=== PATIENT | female | born 1975 | race Caucasian/White ===

== ENCOUNTER 2022-05-25 20:39 | Emergency (ER) | payer MEDICAID, SELFPAY ==
[2022-05-25 21:57] VITALS: BP 109/42; PULSE 69; RESP 16; TEMP 36.4; O2SAT 97; BMI 26.6
--- NOTE | 2022-05-26 00:05 | ED.SKABFB ---
HPI - Skin/Abscess/Foreign Bdy General Chief complaint: Skin/Abscess/Foreign Body Stated complaint: FB in nipple Time Seen by Provider: 05/25/22 23:56 Source: patient Mode of arrival: ambulatory Limitations: no limitations History of Present Illness HPI narrative: 46-year-old female presents requesting to get her piercing taken out of her left. 5 days ago patient noted that 1 of the balls on her nipple piercing bar was caught underneath her nipple. She tells me it does not hurt unless she touches it. Denies fevers, chills, discharge from nipple, numbness, tingling. 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 Related Data Previous Rx's Medication Instructions Recorded cephalexin 500 mg tablet 500 mg PO Q6H 10 days #40 tabs 05/26/22 Allergies Allergy/AdvReac Type Severity Reaction Status Date / Time No Known Allergies Allergy Unverified 04/18/20 16:05 [No Known Allergies*] Review of Systems Review of Systems: Constitutional : No Weight loss, No Fever, No Chills, No Fatigue, No Malaise ENT/Mouth : No sore throat, No Rhinorrhea Eyes: No Eye Pain, No Swelling, No Redness Cardiovascular : No Chest Pain, No SOB, No Dyspnea on Exertion, No Orthopnea, No Edema, No Palpitations Respiratory : No Cough, No Sputum, No Wheezing Gastrointestinal : No Nausea, No Vomiting, No Diarrhea, No Constipation, No abdominal Pain, No Hematochezia, No Melena Genitourinary : No Dysuria, No Urinary Frequency, No Hematuria, Musculoskeletal : No joint pain, No Myalgias, No Joint Swelling Skin : No Skin Lesions, No rash Neuro : No Weakness, No Numbness, No Dizziness, No Headache All other systems reviewed and are negative Yes all other systems are reviewed and are negative [facility] Past Medical History Attestation statement: The following information was validated with the patient. Source: old records reviewed and nursing notes reviewed Social History Social History Advance Directives: No Physical Exam Vital Signs: Vital Signs: Last Vital Signs Temp 97.6 F 05/25/22 21:57 Pulse 69 05/25/22 21:57 Resp 16 05/25/22 21:57 BP 109/42 L 05/25/22 21:57 Pulse Ox 97 05/25/22 21:57 O2 Del Method 05/25/22 21:57 BMI result Body Mass Index 26.6 vss Appearance: Alert.? Oriented X3.? No acute distress.? Head: Normocephalic, atraumatic, no step-offs or deformities Eyes: Pupils equal, round and reactive to light.? CVS: Normal heart rate and rhythm.? Pulses normal.? Respiratory: No respiratory distress.? Breath sounds normal.? Abdomen: Soft and nontender.? Skin: Skin warm and dry.? Normal skin color.? Normal skin turgor.? Breast: + nipple piercing stuck underneath the left nipple. Image below. No overlying erythema, calor, no nipple discharge. Unable to palpate any lumps or masses Extremities: No lower extremity edema.? No calf ttp. 5/5 strength to bilateral upper and lower extremities Neuro: Oriented X 3.? No motor deficit.? No sensory deficit. CN 2-12 intact Course Reevaluation(s) Reevaluation #1: numbed the area and made a small incisio to the left nipple to get the other side of the barbell out. Patient tolerated procedure well. When an incision was made a small amount of pus was noted raising suspicion for possible infection at site. Patient took the piercing out. At this time patient will be discharged home on antibiotics. Time: 01:28 MDM - Skin/Abscess/Foreign Bdy MDM Narrative Medical decision making narrative: 0010 46 year old female presents w/ piercing stuck under her nipple X5 days PE with a stuck piercing under left nipple. No signs of infection Plan- lmx to the area and will try to remove piercing Medical Records Attestation: I reviewed the patient's medical records. Lab Data Attestation: I reviewed the patient's lab results. Critical Care Time Critical Care Time Critical Care Time: No Discharge Plan Discharge Clinical Impression: Nipple pain Patient Disposition: Home, Self-Care Additional Instructions: Take your medications as prescribed. If you were prescribed antibiotics today, it is important that you take your medication to their entirety, do not skip any doses, do not finish them early. Follow-up with your primary care provider this week. Return to the emergency department with new or worsening symptoms. Such as fevers, chills, chest pain, shortness of breath, nausea, vomiting, dizziness, headache, vision changes, lethargy In case of emergency call 911 Apply warm compresses to the area. Follow-up with her PCP. Prescriptions: New cephalexin 500 mg tablet 500 mg PO Q6H 10 Days Qty: 40 0RF Referrals: Physician,None [Primary Care Provider] - 2 days Stand Alone Forms: Work/School Release
[2022-05-26] MEDS: Lidocaine 4 % Cream KIT 1 APPL TOPICAL (01:58)
[2022-05-26] MEDS: Diphth,Pertus(ACell),Tet Adult 0.5 ML SYRINGE IM (02:01)
== END 2022-05-26 02:04 | disposition home or self-care (01) ==
PROVIDERS: Emergency Provider Internal Medicine
DX: S20.112A Abrasion of breast, left breast, initial encounter (principal); L92.3 Foreign body granuloma of the skin and subcutaneous tissue; N64.4 Mastodynia; X58.XXXA Exposure to other specified factors, initial encounter; Y93.9 Activity, unspecified; Y92.9 Unspecified place or not applicable; Y99.9 Unspecified external cause status; Z79.899 Other long term (current) drug therapy
CPT/HCPCS: 10120; 90471; 90715; 99282; 99284

== ENCOUNTER 2023-04-20 19:27 | Outpatient (REF) | payer MEDICAID, SELFPAY ==
[2023-04-20 22:09] LABS: CT PCR NOT DETECTED (Not Detect.); NG PCR NOT DETECTED (Not Detect.)
[2023-04-21 15:39] LABS: BV Int Neg Control Negative (Negative); BV Int Pos Control Positive (Positive)
== END 2023-04-20 19:28 | disposition home or self-care (01) ==
LOC: HO.HHCLNP 19:27
PROVIDERS: Visit Provider Nurse Practitioner Primary Care
DX: N89.8 Other specified noninflammatory disorders of vagina (principal)
CPT/HCPCS: 0353U; 87480; 87510; 87660

== ENCOUNTER 2023-05-03 06:24 | Emergency (ER) | payer MEDICAID, SELFPAY ==
[2023-05-03 06:47] VITALS: BP 112/39; PULSE 60; RESP 17; TEMP 36.4; O2SAT 99; BMI 30.1
--- NOTE | 2023-05-03 07:25 | PC.NURSE ---
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 Reports areas are painful and itchy. Noted to have rash on arms, upper legs, and abdomne. Rash red with small bumps. Denies any known food allergies or environmental allergies.
--- NOTE | 2023-05-03 07:29 | PC.NURSE ---
Patient reports started taking control x 1 week ago. last done was taken sat morning
--- NOTE | 2023-05-03 08:03 | ED.SKABFB ---
HPI - Skin/Abscess/Foreign Bdy General Chief complaint: Skin/Abscess/Foreign Body Stated complaint: Rash all over body Time Seen by Provider: 05/03/23 07:48 Source: patient Mode of arrival: ambulatory Limitations: no limitations History of Present Illness HPI narrative: rash to arms chest and abdomen, started after eating subway yesterday. The rash is puritic, patient denies allergies MD complaint: rash Onset (ago): day(s) Location: generalized Severity: mild Related Data Home Medications Medication Instructions Recorded Confirmed drospirenone 3 mg-ethinyl 1 tab PO QAM 05/03/23 05/03/23 estradiol 0.02 mg tablet (Hanh (28)) drospirenone 3 mg-ethinyl 1 tab PO QAM 05/03/23 05/03/23 estradiol 0.02 mg tablet (Hanh (28)) Previous Rx's Medication Instructions Recorded cephalexin 500 mg tablet 500 mg PO Q6H 10 days #40 tabs 05/26/22 diphenhydramine HCl 25 mg capsule 25 mg PO TID PRN allergic reaction 05/03/23 (Benadryl) #20 caps prednisone 20 mg tablet 60 mg (3 x 20 mg) PO DAILY #12 tabs 05/03/23 Allergies Allergy/AdvReac Type Severity Reaction Status Date / Time No Known Allergies Allergy Unverified 04/18/20 16:05 [No Known Allergies*] Review of Systems Review of Systems: Yes all other systems are reviewed and are negative Neurologic: Denies Sensory deficit (Neuro) [facility] Social History Social History Alcohol intake: never Smoked in Last 30 Days: No Substance Use Type: Marijuana Advance Directives: No Physical Exam Vital Signs: Vital Signs: Last Vital Signs Temp 97.5 F 05/03/23 06:47 Pulse 60 05/03/23 06:47 Resp 17 05/03/23 06:47 BP 112/39 L 05/03/23 06:47 Pulse Ox 99 05/03/23 06:47 O2 Del Method Room Air 05/03/23 06:47 BMI result Body Mass Index 30.1 Const: General: healthy appearing Nutritional Appearance: average body habitus Orientation/consciousness: oriented to person and patient oriented x3 Limitations: no limitations HEENT: Other: no tongue or uvula swelling Head: Yes normal to inspection Ears: external ears normal General nose exam: Normal external nose present Mouth: Normal oral and palatal mucosa present and oropharynx normal Throat: Yes posterior oropharynx normal Eyes: General: appearance normal, both eyes and all related structures Neck: Other: supple Neck: Yes normal visual inspection Chest: Chest palpation & inspection: normal inspection of the chest Resp: Auscultation: clear to auscultation bilaterally Cardio: Jugular venous distension: no JVD Rate: regular rate Rhythm: regular rhythm Heart sounds: S1 normal heart sound present and S2 normal heart sound present GI: Inspection: Yes normal to inspection Palpation (GI): Soft to palpation, nontender and No hepatosplenomegaly present Auscultation: normal bowel sounds : General: Yes no CVA tenderness Back/Spine/Pelvis: Back: no CVA tenderness Skin: Other: red slightly raised on arms, chest and abdomen Neuro: General: oriented to person and patient oriented x3 Cranial nerves: Yes CN's II-XII intact bilaterally Motor exam (neuro): 5/5 motor strength present throughout Sensory Exam: No Sensory deficit (Neuro) Extrem: General: Yes normal to inspection Psych: Appearance: grossly normal Course Reevaluation(s) Reevaluation #1: will treat patient for hives and dc home Time: 08:11 Medical Decision Making Differential Diagnosis Differential Diagnoses: The differential diagnosis associated with the presentation includes (allergic reaction, hives, eczema, viral exanthem all considered) Prescription Management I considered prescription management with: Antibiotic (considered but no evidence of cellulitis) Discharge Plan Discharge Clinical Impression: Urticaria Allergic reaction Qualifiers: Encounter type: initial encounter Qualified Code(s): T78.40XA - Allergy, unspecified, initial encounter Patient Disposition: Home, Self-Care Instructions: General Allergic Reaction (ED) Prescriptions: New diphenhydramine HCl [Benadryl] 25 mg capsule 25 mg PO TID PRN (Reason: allergic reaction) Qty: 20 0RF prednisone 20 mg tablet 60 mg PO DAILY Qty: 12 0RF No Action cephalexin 500 mg tablet 500 mg PO Q6H 10 Days Qty: 40 0RF drospirenone-ethinyl estradiol [Hanh (28)] 3-0.02 mg tablet 1 tab PO QAM drospirenone-ethinyl estradiol [Hanh (28)] 3-0.02 mg tablet 1 tab PO QAM Referrals: Physician,Unknown J [Primary Care Provider] - 1 week
[2023-05-03] MEDS: predniSONE 20 MG TABLET 60 MG PO (08:21)
[2023-05-03] MEDS: diphenhydrAMINE HCL 25 MG CAPSULE PO (08:21)
--- NOTE | 2023-05-03 08:25 | PC.NURSE ---
Discharge plan reviewed with patient who verbalized understanding
== END 2023-05-03 08:25 | disposition home or self-care (01) ==
PROVIDERS: Emergency Provider Emergency Medicine
DX: L50.0 Allergic urticaria (principal); Z79.899 Other long term (current) drug therapy
CPT/HCPCS: 99283; 99284

== ENCOUNTER 2023-11-16 09:52 | Outpatient (REF) | payer MEDICAID, SELFPAY ==
[2023-11-17 13:56] LABS: BV Int Neg Control Negative (Negative); BV Int Pos Control Positive (Positive)
[2023-11-18 23:29] LABS: HPV mRNA E6/E7 rflx Not Detected (Not Detected)
== END 2023-11-16 09:53 | disposition home or self-care (01) ==
LOC: HO.LAB 09:52
PROVIDERS: Visit Provider Advanced Practice Midwife
DX: Z01.419 Encounter for gynecological examination (general) (routine) without abnormal findings (principal); Z11.51 Encounter for screening for human papillomavirus (HPV); Z20.2 Contact with and (suspected) exposure to infections with a predominantly sexual mode of transmission
CPT/HCPCS: 0353U; 86780; 86803; 87340; 87389; 87480; 87510; 87624; 87660; 88142; 99386

== ENCOUNTER 2023-11-16 09:52 | Outpatient (AMB) | payer MEDICAID, SELFPAY ==
--- NOTE | 2023-11-16 09:57 | MHC.OFFVIS ---
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 She used to come to the midwifery practice and had her children with us. She has had 3 vaginal births her oldest is 25 her youngest is 10. 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 She makes herself do sit-ups and squats 3 times a day. She is trying to eat well and be healthy. She was on control pills that she got through urgent care last year but stopped them in July she has no longer with that person. She is considering becoming sexually active again and would like control pills and also Plan B. She would like testing for full STIs she has been on a waiting list try to get primary care provider but it has been a long wait. She had a gap in healthcare because of loss of insurance during the pandemic. Her last mammogram was years ago as well as her last Pap. [facility] Social History Alcohol intake: never Substance Use Type: Marijuana Female Reproductive History Menstrual Age of Menarche: 16 Duration of menses: 3-5 days Date of last menstrual period: 11/02/23 control method: none Total pregnancies: 3 Full term: 3 History of abnormal pap smear: Yes (previous pap, unsure date ?) Physical Exam Vital Signs: Last Vital Signs BP 110/62 11/16/23 10:04 BMI result Body Mass Index 29.8 Const General: healthy appearing, comfortable, no acute distress, well developed and alert Nutritional Appearance: average body habitus Orientation/consciousness: patient oriented x3 Limitations: no limitations HEENT Head: Yes normocephalic Neck Neck: Yes normal visual inspection Chest Chest palpation & inspection: normal inspection of the chest Breast/axilla inspection: normal inspection of the breasts and normal inspection of the axillae Breast/axilla palpation: normal palpation of the breasts and normal palpation of the axillae Resp Effort & Inspection: normal respiratory effort GI Inspection: Yes normal to inspection, No Abdominal wall edema and No distended Palpation (GI): Soft to palpation and nontender Other: Normal external exam vagina pink and moist cervix multiparous pink smooth slightly friable with Pap smear uterus small retroverted firm mobile nontender adnexa nontender very good tone with Kegel. General: Yes bladder normal to palpation External Female Exam: normal external appearance and normal appearance of the urethra Speculum Exam - Vagina: normal appearance of the vagina, normal palpation and normal vaginal discharge Speculum Exam - Cervix: normal appearance of the cervix, normal palpation and nontender Bimanual exam- vagina & uterus: normal bimanual exam, normal palpation, uterine size normal, bladder normal to palpation, consistency normal, normal palpation, uterine mobility normal, uterine shape normal, No Cervical tenderness present, non-tender and no cervical motion tenderness Bimanual Exam- Adnexa, other: normal adnexae, no masses, normal and No adnexal tenderness Neuro General: patient oriented x3 Assessment & Plan Assessment & Plan (1) Encounter for screening examination for sexually transmitted disease: Code(s): Z11.3 - Encounter for screening for infections with a predominantly sexual mode of transmission (2) Breast cancer screening: Code(s): Z12.39 - Encounter for other screening for malignant neoplasm of breast (3) Cervical cancer screening: Code(s): Z12.4 - Encounter for screening for malignant neoplasm of cervix (4) Counseling for control, oral contraceptives: Code(s): Z30.09 - Encounter for other general counseling and advice on contraception (5) Well woman exam with routine gynecological exam: Code(s): Z01.419 - Encounter for gynecological examination (general) (routine) without abnormal findings Plan -----Discussed in this visit the following: healthy balanced diet, regular and consistent exercise, getting recommended health screens, doing the best she can for her particular health concerns, kegel exercises, pap smear screening and followup recommendations, mammography screening and SBE, normal changes in cycles in her life stage--- . Reviewed her excellent self-care she is doing great with her exercise and discipline. Reviewed safer sex offered OCPs because she has not interested any of the other methods and she delineated the side but she had with all of them. She can she be good at taking pills did reviewed that the pills I will be prescribing not have estrogen in them. Also offered plan need for emergency just in case she needed it reviewed how to take that as well reviewed to start her regular control pills at the beginning of her next period the 1st 2nd and 3rd days are her heaviest so anyone of those days would be best. Reviewed that condoms are girls best friend. I am ordering labs for her to get HIV hep B hep C and syphilis testing gave her information about the portal and she is going to check at the senior front end web developer if there is alternative information available about finding a PCC within [facility] system. 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 Orders: Orders HIV Ab/Ag Today Z11.3 - Encounter for screening for infections with a predominantly sexual mode of transmission Syphilis Screen Today Z11.3 - Encounter for screening for infections with a predominantly sexual mode of transmission Hepatitis B Surface Antigen Today Z11.3 - Encounter for screening for infections with a predominantly sexual mode of transmission Hepatitis C Antibody Today Z11.3 - Encounter for screening for infections with a predominantly sexual mode of transmission MM tomosynthesis screening BI Today Z01.419 - Encounter for gynecological examination (general) (routine) without abnormal findings, Z12.31 - Encounter for screening mammogram for malignant neoplasm of breast, Z12.39 - Encounter for other screening for malignant neoplasm of breast, Z12.4 - Encounter for screening for malignant neoplasm of cervix, Z30.09 - Encounter for other general counseling and advice on contraception Medications: New levonorgestrel (Plan B One-Step) 1.5 mg PO ONCE 1 tab 4RF norethindrone (contraceptive) Start these at the beginning of your next menses. 0.35 mg PO DAILY 84 tabs 4RF Discontinued cephalexin Discontinued Reason: Patient Completed Course 500 mg PO Q6H 10 days 40 tabs 0RF diphenhydramine HCl (Benadryl) Discontinued Reason: No Longer Medically Relevant 25 mg PO TID PRN 20 caps 0RF allergic reaction prednisone Discontinued Reason: Patient Completed Course 60 mg (3 x 20 mg) PO DAILY 12 tabs 0RF Coding Level of Care Code New Pt Prev Care 40-64y(75799) Diagnoses Encounter for screening examination for sexually transmitted disease Z11.3 Breast cancer screening Z12.39 Cervical cancer screening Z12.4 Counseling for control, oral contraceptives Z30.09 Well woman exam with routine gynecological exam Z01.419
[2023-11-16 10:04] VITALS: BP 110/62; BMI 29.8
== END 2023-11-16 11:19 | disposition home or self-care (01) ==
LOC: HO.HWSM 09:52
PROVIDERS: Visit Provider Advanced Practice Midwife
DX: Z11.3 Encounter for screening for infections with a predominantly sexual mode of transmission (principal); Z12.39 Encounter for other screening for malignant neoplasm of breast; Z12.4 Encounter for screening for malignant neoplasm of cervix; Z30.09 Encounter for other general counseling and advice on contraception; Z01.419 Encounter for gynecological examination (general) (routine) without abnormal findings
CPT/HCPCS: 99386

== ENCOUNTER 2023-11-16 11:21 | Outpatient (REF) | payer MEDICAID, SELFPAY ==
[2023-11-16 16:05] LABS: CT PCR NOT DETECTED (Not Detect.); NG PCR NOT DETECTED (Not Detect.)
[2023-11-17 07:52] LABS: Syphilis Screen Nonreactive (Nonreactive)
[2023-11-17 08:26] LABS: HBsAGNum1 0.34 S/CO (0.00-0.99); HIV AB/AG Nonreactive (Nonreactive); HIV Num 1 0.06 S/CO (0.00-0.99); Hepatitis B Surface Antigen Negative (Negative); ~HepC Num1 0.08 S/CO (0.00-0.79); ~Hepatitis C Antibody Nonreactive (Nonreactive)
== END 2023-11-16 11:22 | disposition home or self-care (01) ==
LOC: HO.HHCL 11:21
PROVIDERS: Visit Provider Advanced Practice Midwife
DX: Z01.419 Encounter for gynecological examination (general) (routine) without abnormal findings (principal); Z11.3 Encounter for screening for infections with a predominantly sexual mode of transmission; Z11.4 Encounter for screening for human immunodeficiency virus [HIV]
CPT/HCPCS: 0353U; 86780; 86803; 87340; 87389

== ENCOUNTER → 2023-11-27 07:45 | Outpatient (BNV) | payer MEDICAID, SELFPAY | PROVIDERS: Visit Provider Radiology Diagnostic Radiology | DX: Z12.31 Encounter for screening mammogram for malignant neoplasm of breast (principal) | CPT/HCPCS: 77063; 77067 ==

== ENCOUNTER 2023-11-27 07:49 | Outpatient (REF) | payer MEDICAID, SELFPAY ==
--- NOTE | ~2023-11-27 | MM_ITS ---
EXAMINATION: MM SCREENING DIGITAL BREAST TOMOSYNTHESIS, BILATERAL CLINICAL INFORMATION: Screening. Asymptomatic. COMPARISON: Mammography: This study is compared with prior exams dating back to 2016. There are no interval examinations. TECHNIQUE: Digital breast tomosynthesis is performed in both the craniocaudal and mediolateral oblique views along with computer-aided detection (CAD). Synthesized 2D images are generated from the tomosynthesis. FINDINGS: There are scattered areas of fibroglandular density (ACR BI-RADS breast composition Category b). There are no significant masses, abnormal calcifications, or other abnormalities. The patient has bilateral nipple rings. MM/MM tomosynthesis screening BI IMPRESSION: No mammographic evidence of malignancy. ASSESSMENT: BI-RADS BI-RADS 1 - Negative RECOMMENDATION: Routine annual mammography screening. 1 year F/U This examination should not preclude the clinical evaluation of a suspicious palpable abnormality. This patient's information was entered into a reminder system with a target due date for their next mammogram.
== END 2023-11-27 07:50 | disposition home or self-care (01) ==
LOC: HO.MAMMO 07:49
PROVIDERS: Visit Provider Advanced Practice Midwife
DX: Z12.31 Encounter for screening mammogram for malignant neoplasm of breast (principal)
CPT/HCPCS: 77063; 77067

== ENCOUNTER 2025-05-17 09:59 | Outpatient (AMB) | payer MEDICAID, SELFPAY ==
--- NOTE | 2025-05-17 09:59 | A.OFFVIS_ITS ---
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: Carton Forming Machine Adjuster Present (Asha) Accompanied by: Self / Same As Patient Allergies No Known Allergies (No Known Allergies*) Allergy (Verified 05/17/25 10:03) Medication List - Last Reconciled 05/17/25 by Jaimie Mcgovern CNM No Known Home Meds HPI HPI Pill Check: Details: Patient is scheduled here for pill check visit but she says she never started the pills she was considering becoming active with someone and it did not quite work out she is very focused on having her life and taking care of her responsibilities with her kids and raising her kids alone and working and things did not work out with that person though she is talking with someone else and taking things very very slow and is open to considering options should things go in that direction and feel appropriate she would want to do her part aside from using condoms and so she would want to start the pills. She would like a new prescription so I will send the prescription again for progestin only OCPs and her last period was on the 23 of April so it is due to start next week I recommend that she start at the beginning of next week's period. She is very aware of safer sex. She has been waiting to get a primary care provider through the [facility] so I gave her a list of primary care provider's through [facility] for her to check out and I am also ordering her mammogram and she will be seen for her annual exam and we will review everything then. [facility] Social History Alcohol intake: never Substance Use Type: Marijuana Female Reproductive History Menstrual Age of Menarche: 16 Duration of menses: 3-5 days Date of last menstrual period: 04/25/25 control method: none Total pregnancies: 3 Full term: 3 Date of last pap smear: 11/16/23 History of abnormal pap smear: Yes Date of Mammogram: 11/27/23 (bi rad 1) Physical Exam Vital Signs: Last Vital Signs BP 112/70 05/17/25 10:06 BMI result Body Mass Index 26.9 Assessment & Plan Assessment & Plan (1) Breast cancer screening: Code(s): Z12.39 - Encounter for other screening for malignant neoplasm of breast Category: Medical (2) Cervical cancer screening: Comment: 11/16/23 Pap shows ASCUS, HPV negative; per [facility], repeat pap in 3 yrs.... Code(s): Z12.4 - Encounter for screening for malignant neoplasm of cervix Category: Medical (3) Counseling for control, oral contraceptives: Code(s): Z30.09 - Encounter for other general counseling and advice on contraception Category: Medical Plan Patient is scheduled here for pill check visit but she says she never started the pills she was considering becoming active with someone and it did not quite work out she is very focused on having her life and taking care of her responsibilities with her kids and raising her kids alone and working and things did not work out with that person though she is talking with someone else and taking things very very slow and is open to considering options should things go in that direction and feel appropriate she would want to do her part aside from using condoms and so she would want to start the pills. She would like a new prescription so I will send the prescription again for progestin only OCPs and her last period was on the 23 of April so it is due to start next week I recommend that she start at the beginning of next week's period. She is very aware of safer sex. She has been waiting to get a primary care provider through the [facility] so I gave her a list of primary care provider's through [facility] for her to check out and I am also ordering her mammogram and she will be seen for her annual exam and we will review everything then. Orders: Orders MM tomosynthesis screening BI Today Z12.31 - Encounter for screening mammogram for malignant neoplasm of breast, Z12.39 - Encounter for other screening for malignant neoplasm of breast, Z12.4 - Encounter for screening for malignant neoplasm of cervix, Z30.09 - Encounter for other general counseling and advice on contraception Medications: Refilled norethindrone (contraceptive) Start these at the beginning of your next menses. 0.35 mg PO DAILY 84 tabs 4RF Coding Level of Care Code Est Pt Level 3 (32032) Diagnoses Breast cancer screening Z12.39 Cervical cancer screening Z12.4 Counseling for control, oral contraceptives Z30.09
[2025-05-17 10:06] VITALS: BP 112/70; BMI 26.9
--- OUTSIDE RECORDS SUMMARY | 2025-05-17 11:49 | XMS_ITS | Clinical Summary ---
Author Organization [facility] Address [address] [place] [address] [address] [place] [address] Care Team Providers Care Dryerman/Woman Name Role Phone Unavailable Primary Care Provider Unavailabl e Allergies No known active allergies Medications drospirenone-eth inyl estradiol (Yuni, Gianvi) 3-0.02 MG tabletIndication s:Family planning Take 1 tablet by mouth in the morning. 28 tablet 11 04/20/2023 Active ulipristal (Shiloh) 30 mg tabletIndication s:Family planning Take one tablet by mouth up to five days after sex 1 tablet 11 04/20/2023 Active Active Problems Problem Noted Date Diagnosed Date Family planning 04/20/2023 Immunizations Immunization Administration Dates Next Due Tdap 05/26/2022 Social History Tobacco Use Types Packs/Day Years Used Date Smoking Tobacco: Never Smokeless Tobacco: Never Tobacco Cessation:Counseling Given: Not Answered Comments Unknown Sex and Gender Information Value Date Recorded Sex Assigned at Female 04/20/2023 9:48 AM EDT Legal Sex Female 2:22 PM EST Gender Identity Female 04/20/2023 9:48 AM EDT Sexual Orientation Straight 04/20/2023 9: 48 AM EDT Last Filed Vital Signs Vital Sign Reading Time Taken Comments Blood Pressure 129/54 04/20/2023 10:39 AM EDT Pulse 83 04/20/2023 10:39 AM EDT Temperature 37.2 C (98.9 F) 04/20/2023 10:39 AM EDT Respiratory Rate 17 04/20/2023 10:3 9 AM EDT Oxygen Saturation 99% 04/20/2023 10: 39 AM EDT Inhaled Oxygen Concentration - - Weight 86.5 kg (190 lb 12.8 oz) 023 10:39 AM EDT Height - - Body Mass Index - - Plan of Treatment Health Maintenance Due Date Last Done Comments CT Colonography 1975 Colonoscopy 1975 Colorectal Cancer Screening 1975 Depression Screening 1975 FIT DNA/Cologuard 1975 FIT 1975 FOBT 1975 HIV Screening 1975 SDOH Screening 1975 Sigmoidoscopy 1975 Disability Screening 1975 Alcohol/Substance Use Screening 1987 Family Planning (PISQ) 11/07/1990 Hepatitis C Screening 11/07/1993 Hepatitis B Vaccines (1 of 3 - 19+ 3-dose series) 11/07/1994 Pap Smear 11/07/1996 Cervical Cancer Screening 11/07/2005 HPV/Cotest 11/07/2005 Mammogram 2015 Tobacco Screening 04/20/2024 04/20/2023 COVID-19 Vaccine (1 - 2023-2 5 season) 2025 Influenza Vaccine (#1) 2025 Zoster Vaccines (1 of 2) 11/07/2025 DTaP/Tdap/Td Vaccines (2 - T d or Tdap) 05/26/2032 05/26/2022 RSV Patients and Pa tients Aged 60 years or older (1 - 1-dose 75+ series) 11/07/2050 HIB Vaccines Aged Out No longer eligi ble based on patient's age to complete this topic HPV Vaccines Aged Out No longer eligi ble based on patient's age to complete this topic Hepatitis A Vaccines Aged Out No long er eligible based on patient's age to complete this topic IPV Vaccines Aged Out No longer eligi ble based on patient's age to complete this topic Meningococcal B Vaccine Aged Out No l onger eligible based on patient's age to complete this topic Meningococcal Vaccine Aged Out No mayra chely eligible based on patient's age to complete this topic Pneumococcal Vaccine: Pediat rics (0 to 5 Years) and At-Risk Patients (6 to 49) Years Aged Out No longer eligi ble based on patient's age to complete this topic RSV under 20 months Aged Out No longe r eligible based on patient's age to complete this topic Rotavirus Vaccines Aged Out No longer eligible based on patient's age to complete this topic Insurance [employer] C[employer]
== END 2025-05-17 11:01 | disposition home or self-care (01) ==
LOC: HO.HWSM 09:59
PROVIDERS: Visit Provider Advanced Practice Midwife
DX: Z12.39 Encounter for other screening for malignant neoplasm of breast (principal); Z12.4 Encounter for screening for malignant neoplasm of cervix; Z30.09 Encounter for other general counseling and advice on contraception
CPT/HCPCS: 99213

== ENCOUNTER → 2025-05-17 09:59 | Outpatient (BNVA) | payer MEDICAID, SELFPAY | PROVIDERS: Visit Provider Advanced Practice Midwife | DX: Z12.31 Encounter for screening mammogram for malignant neoplasm of breast (principal); Z12.4 Encounter for screening for malignant neoplasm of cervix; Z30.09 Encounter for other general counseling and advice on contraception | CPT/HCPCS: 99212 ==